=== PATIENT | female | born 1965 | race Caucasian/White ===

== ENCOUNTER 2019-01-01 17:14 | Observation (INO) | payer BC ==
--- NOTE | 2019-01-01 18:15 | RAD ---
FPortable chest radiograph: 01/01/2019 COMPARISON: None HISTORY:Chest pain, prior right-sided rib fractures FINDINGS: Postoperative clips and wires overlie the right lung base. The heart and mediastinal contou rs are within normal limits. No pneumothorax, pleural effusion, focal consolidation, or alveolar jesus a. IMPRESSION: No radiographic evidence of acute cardiopulmonary disease.
[2019-01-01 18:47] LABS: ALT (SGPT) 52 U/L (8-55); AST (SGOT) 43 U/L (5-34); Albumin 4.2 g/dL (3.5-5.0); Alkaline Phosphatase 100 U/L (40-150); Anion Gap 10 mmol/L (10-20); BUN (Urea Nitrogen) 15 mg/dL (9.8-20.1); Bilirubin, Total 0.8 mg/dL (0.2-1.2); Calc. Creatinine Clearance 0 mL/min (70-130); Calcium 10.1 mg/dL (7.8-10.44); Carbon Dioxide 25 mmol/L (22-29); Chloride 105 mmol/L (98-107); Estimated GFR-MDRD 85; Globulin 3.5 g/dL (2.4-3.5); Glucose 104 mg/dL (70-105); Potassium 3.8 mmol/L (3.5-5.1); Protein, Total 7.7 g/dL (6.0-8.3); Sodium 136 mmol/L (136-145)
[2019-01-01 18:49] LABS: #Basophils 0.1 thou/uL (0.0-0.2); #Eosinphils 0.1 thou/uL (0.0-0.7); #Lymphocytes 1.6 thou/uL (1.20-3.40); #Monocytes 0.4 thou/uL (0.11-0.59); #Neutrophils 2.7 thou/uL (1.40-6.50); %Basophils 1.3 % (0.0-1.0); %Eosinophils 2.2 % (0.0-10.0); %Lymphocytes 33.2 % (21.0-51.0); %Monocytes 8.1 % (0.0-10.0); %Neutrophils 55.2 % (42.0-75.0); Hemoglobin 13.2 g/dL (12.0-16.0); Mean Corpuscular HGB CONC 34.1 g/dL (32.0-36.0); Mean Corpuscular Hemoglobin 35.5 pg (27.0-31.0); Mean Platelet Volume 8.2 fL (7.4-10.4); Platelet Count 94 thou/uL (130-400); Platelet Morphology Comment Appears Decreased; RBC Morphology Normal; White Blood Cell (WBC) Count 4.9 thou/uL (4.8-10.8)
[2019-01-01 18:53] VITALS: BMI 22.3
[2019-01-01] MEDS ORDERED: Aspirin 325 MG TAB PO SCH (19:45)
[2019-01-01] MEDS ORDERED: Hydrochlorothiazide 25 MG TAB PO SCH (20:00)
[2019-01-01] MEDS ORDERED: hydrALAZINE 20 MG/ML VIAL SLOW IVP PRN (20:06)
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
[2019-01-01 20:12] LABS: Phosphorus 3.8 mg/dL (2.3-4.7)
--- NOTE | 2019-01-01 20:13 | RAD ---
F2 views chest: 01/01/2019 HISTORY: Chest tightness and cough FINDINGS: Multiple metallic wires overlie the anterior aspect of the right lung base. Multiple clips are seen in the right upper quadrant. Lungs are clear. Heart and mediastinal contours unremarkable. IMPRESSION: No acute findings.
[2019-01-01] MEDS: Acetaminophen 325 MG TAB PO PRN (21:07)
[2019-01-01 22:49] LABS: HBCM Index 0.06 S/CO (0-0.79); HBSAg Index 0.27 S/CO (0-0.99); Hep A IgM AB Non-Reactive (NonReactive); Hep A IgM S/CO 0.17 S/CO (0-0.79); Hep B Surf Ag Non-Reactive S/CO (NonReactive); Hepatitis B Core IgM Abs Non-Reactive (NonReactive)
[2019-01-01 22:59] LABS: Hep C IgG Ab Reflex HepC Qnt (NonReactive)
[2019-01-01 23:00] LABS: Hep C Index 9.06 S/CO (0-0.79)
[2019-01-02 03:22] LABS: #Basophils 0.1 thou/uL (0.0-0.2); #Eosinphils 0.2 thou/uL (0.0-0.7); #Monocytes 0.4 thou/uL (0.11-0.59); #Neutrophils 1.8 thou/uL (1.40-6.50); %Basophils 1.7 % (0.0-1.0); %Eosinophils 3.7 % (0.0-10.0); %Lymphocytes 45.4 % (21.0-51.0); %Monocytes 8.5 % (0.0-10.0); %Neutrophils 40.7 % (42.0-75.0); Hemoglobin 12.7 g/dL (12.0-16.0); Mean Corpuscular HGB CONC 34.7 g/dL (32.0-36.0); Mean Corpuscular Hemoglobin 36.2 pg (27.0-31.0); Mean Platelet Volume 7.8 fL (7.4-10.4); Platelet Count 84 thou/uL (130-400); RBC Distribution Width 11.9 % (11.5-14.5); White Blood Cell (WBC) Count 4.4 thou/uL (4.8-10.8)
[2019-01-02 03:46] LABS: Anion Gap 11 mmol/L (10-20); BUN (Urea Nitrogen) 18 mg/dL (9.8-20.1); Calc. Creatinine Clearance 84 mL/min (70-130); Carbon Dioxide 25 mmol/L (22-29); Cardiac Risk 2.7 (Less than 4.5); Chloride 105 mmol/L (98-107); Cholesterol 138 mg/dl (< 200 Desired); Estimated GFR-MDRD 83; Glucose 95 mg/dL (70-105); HDL Cholesterol 52 mg/dL (>60 Neg Risk); LDL Cholesterol, Calculated 65 mg/dL; Potassium 3.7 mmol/L (3.5-5.1); Sodium 137 mmol/L (136-145); Triglycerides 106 mg/dL (Less than 150)
--- NOTE | 2019-01-02 06:48 | PDOC.FM ---
- Subjective Subjective: Pt denies chest pain, SOB, headache, nausea, or vomiting this morning. She does reports that she knew she had a "touch of Hepatitis C," following a liver biopsy in the past. - Objective MAR Reviewed: Yes Vital Signs & Weight: Vital Signs (12 hours) Temp Pulse Resp BP Pulse Ox 01/02/19 04:40 97.9 F 66 14 140/86 97 01/01/19 23:36 98.2 F 69 18 176/77 H 95 01/01/19 19:38 98.5 F 80 16 174/106 H 95 01/01/19 18:53 73 16 176/102 H Weight Weight 60.781 kg Result Diagrams: 01/02/19 03:12 01/02/19 03:12 Phys Exam - Physical Examination Constitutional: NAD HEENT: moist MMs Neck: supple, full ROM Respiratory: no wheezing, no rales, clear to auscultation bilateral Cardiovascular: RRR, no significant murmur, no rub Gastrointestinal: soft, non-tender, no distention, positive bowel sounds Musculoskeletal: no edema, pulses present Neurological: non-focal, moves all 4 limbs Psychiatric: normal affect, A&O x 3 Skin: cap refill <2 seconds Dx/Plan (1) Chest pain Code(s): R07.9 - CHEST PAIN, UNSPECIFIED Status: Acute (2) Crohn disease Code(s): K50.90 - CROHN'S DISEASE, UNSPECIFIED, WITHOUT COMPLICATIONS Status: Acute (3) Elevated transaminase level Code(s): R74.0 - NONSPEC ELEV OF LEVELS OF TRANSAMNS & LACTIC ACID DEHYDRGNSE Status: Acute (4) Hypertensive urgency Code(s): I16.0 - HYPERTENSIVE URGENCY Status: Acute - Plan Plan: This is a 53 yo female with a pmh of HTN and crohns Atypical chest pain -Trop negative x3, TSH wnl, FLP wnl -Stress and echo today HTN urgency -Noncompliant with meds -BP improved overnight, on HCTZ, PRN hydalazine in place Transaminitis -Slight increase in AST -Pending hepatic studies -Will discuss hepatitis vaccines today Crohns -Not on meds Alcohol abuse -Encouraged cutting back
--- NOTE | 2019-01-02 07:19 | ULT ---
RIGHT UPPER QUADRANT ULTRASOUND: INDICATION: Elevated transaminase. [place] None. FINDINGS: There is coarse echotexture of the liver with slightly nodular contour raising suspicion for changes of cirrhosis. No focal hepatic lesion is evident. Appropriate hepatopetal flow is seen within the m ain portal vein. The gallbladder is surgically absent. The common bile duct measures 2.8 mm. The r ight kidney measured 10 cm in length. There is a 4.3 cm cyst involving the inferior pole of the righ t kidney. Visualized aspects of the gallbladder appear within normal limits. No free fluid is evide nt. IMPRESSION: 1. Coarse echotexture of the liver with slight nodular contour raising suspicion for chronic liver d isease. No focal hepatic lesion is evident. 2. Cholecystectomy. 3. Right inferior pole renal cyst. POS: BH
[2019-01-02 08:57] LABS: HBSAB Concentration 0.16 mIU/mL; Hep B Surf AB Non-Reactive (NonReactive)
[2019-01-02] MEDS ORDERED: Hydrochlorothiazide 25 MG TAB PO SCH ×2 (09:00→19:45)
[2019-01-02] MEDS ORDERED: Enoxaparin Sodium 40 MG/0.4 ML SYRINGE SC SCH (09:00)
[2019-01-02] MEDS ORDERED: Aspirin 81 mg Enteric Coated Tablet PO SCH (09:00)
[2019-01-02 10:05] LABS: Amphetamine Not Detected (NotDetected); Barbiturates Screen Not Detected (NotDetected); Benzodiazepine Screen Not Detected (NotDetected); Cocaine Metabolite Screen Not Detected (NotDetected); Medtox Reader # READER 1; Methadone Not Detected (NotDetected); Methamphetamine Not Detected (NotDetected); Opiate Screen Not Detected (NotDetected); Oxycodone Screen Not Detected (NotDetected); Phencyclidine (PCP) Not Detected (NotDetected); THC/Cannabinoid Screen Not Detected (NotDetected); Tricyclic Screen Not Detected (NotDetected)
[2019-01-02 10:06] LABS: Medtox Control Line Valid? VALID (VALID)
[2019-01-02 10:17] LABS: Hep B Core Total Ab NonReactive (NonReactive); Hep B Core Total Index 0.07 S/CO (0-0.79)
--- NOTE | 2019-01-02 11:18 | PRG ---
DATE OF SERVICE: Ms. Cheema is a 53-year-old lady, who was admitted with some suspicious chest pain. She was also found to be hypertensive. We have scheduled her for a stress Myoview, which is currently pending. She also has ultrasound evidence of cirrhosis, likely related to alcohol and possibly hep C. She has a prior history of hepatitis C and we are rechecking this with hep C antibody and viral load count. In the event, she should be instructed to never drink again. Further workup for her chest pain will depend on results of the stress Myoview. Job ID: [id number]
[2019-01-02] MEDS: Acetaminophen 325 MG TAB PO PRN (12:08)
[2019-01-02] MEDS ORDERED: Benzonatate 100 MG CAP PO SCH (12:15)
--- NOTE | 2019-01-02 12:42 | NM ---
NUCLEAR MEDICINE CARDIAC PERFUSION EXAMINATION WITH EJECTION FRACTION: HISTORY: A 53-year-old female with chest pain and hypertension. TECHNIQUE: A single-day nuclear medicine cardiac perfusion examination was performed. Rest images were obtained using 9.2 mCi of Technetium 99m sestamibi. Stress images were obtained using 30.2 mCi of Technetium 99m sestamibi and adenosine. FINDINGS: Tomographic images showed no fixed or reversible perfusion defects. Gated images show normal wall mo tion with an ejection fraction of 54%. EDV is 78 mL. LHR is 0.36. TID is 0.83. IMPRESSION: No evidence of ischemia. POS: TPC
[2019-01-02 13:39] VITALS: TEMP 98
--- NOTE | 2019-01-02 14:50 | EKG ---
Test Reason : STAT Blood Pressure : / mmHG Vent. Rate : 074 BPM Atrial Rate : 074 BPM P-R Int : 126 ms QRS Dur : 086 ms QT Int : 388 ms P-R-T Axes : 039 -15 -23 degrees QTc Int : 430 ms Normal sinus rhythm Possible Left atrial enlargement Left ventricular hypertrophy Cannot rule out Septal infarct , age undetermined T wave abnormality, consider anterior ischemia Abnormal ECG No previous ECGs available Confirmed by VENKATA WOODS, DR. Haney ([id number]) on 01/02/2019 2:49:54 PM Referred By: Confirmed By:DR. Lyndon HASTINGS MD
[2019-01-02] MEDS ORDERED: ADENOSINE 60 MG/20 ML VIAL ONE (16:23)
[2019-01-02 17:24] VITALS: BP 168/100
[2019-01-04 18:07] LABS: HCV log10 6.057 (.); Hep C PCR-Quant 1140000 IU/mL (.)
--- NOTE | 2019-01-08 14:28 | STRESS ---
Acquisition Time: 2019-01-02 10:14:31 Total Exercise Time: 00:04:00 Test Indications: CHEST PAIN Medications: Protocol: ADENOSINE Max HR: 100 BPM 60% of Pred: 165 BPM Max BP: 190/110 mmHG Max Work Load: 1.0 METS RESTING ECG: NORMAL SINUS RHYTHM AT 68 [address]PM WITH NON-SPECIFIC ST SEGMENT AND V3-V5 SYMPTOMS: CHEST PAIN NORMAL BP RESPONSE ECTOPY: NONE ECG STRESS: NO SIGNIFICANT CHANGES INTERPRETATION: INDETERMINATE ECG/AWAIT NUCLEAR IMAGES FOR DEFINITIVE DIAGNOSIS Confirmed by MEENA POZO, BRITTANY ([id number]) on 01/08/2019 2:28:09 PM Referred By: MD Ray MORAN Confirmed By:BRITTANY POZO PA-C
== END 2019-01-02 20:07 | disposition home or self-care (01) ==
LOC: 2NO 17:14 → INTOOBSV 17:14
PROVIDERS: ADMIT Family Medicine; ATTEND Family Medicine
DX: I16.0 Hypertensive urgency (principal); R07.89 Other chest pain; K50.90 Crohn's disease, unspecified, without complications; F17.210 Nicotine dependence, cigarettes, uncomplicated; Z90.49 Acquired absence of other specified parts of digestive tract; Z88.5 Allergy status to narcotic agent; Z79.899 Other long term (current) drug therapy; Z98.890 Other specified postprocedural states
CPT/HCPCS: 36415; 71045; 71046; 76705; 78452; 80048; 80053; 80061; 80074; 80306; 83735; 83880; 84100; 84443; 84484; 85025; 86704; 86706; 86708; 87522; 93005; 93010; 93017; 93306; A9500; G0378; J0153; J1650